=== PATIENT | female | born 2000 | race Caucasian/White ===

== ENCOUNTER 2019-10-13 19:30 | Emergency (ER) | payer SELFPAY ==
[2019-10-13] MEDS ORDERED: LORazepam 0.5 MG Tab PO ONE (19:59)
--- NOTE | 2019-10-13 20:04 | EDM.PDOC ---
ED HPI GENERAL MEDICAL PROBLEM - General Chief Complaint: General Stated Complaint: possible panic attack Time Seen by Provider: 10/13/19 19:35 Source of Information: Reports: Patient History Limitations: Reports: No Limitations (. ) - History of Present Illness INITIAL COMMENTS - FREE TEXT/NARRATIVE: Patient is a 19-year-old female who presents to the ER with complaints of what she feels was likely a panic attack. States that she was on her way back from [place] and became shaky, started hyperventilating, and her heart started racing. She states that she had a feeling of impending doom. She states that the symptoms lasted approximately 20 minutes. The time she arrived to the ER, she states that she feels much better, however she is still quite anxious. She states that she has had what she feels are panic attacks intermittently for quite a while. Over the last couple weeks they have gotten slightly worse, but this is the worst that she has had. She states that she is probably had 2-3 episodes a week for the last few weeks. She has never seen a primary care provider and has never been on medications for anxiety. She has no history of thyroid dysfunction or any other chronic medical conditions. - Related Data Allergies Allergy/AdvReac Type Severity Reaction Status Date / Time No Known Allergies Allergy Verified 10/13/19 19:37 Home Meds: Home Meds hydrOXYzine HCL [Atarax] 50 mg PO QID PRN #15 tab 10/13/19 [Rx] Past Medical History - Past Health History Medical/Surgical History: Denies Medical/Surgical History Social & Family History - Tobacco Use Smoking Status *Q: Never Smoker - Recreational Drug Use Recreational Drug Use: Yes Drug Use in Last 12 Months: Yes Recreational Drug Type: Reports: Marijuana/Hashish Recreational Drug Use Frequency: Weekly ED ROS GENERAL - Review of Systems Review Of Systems: Comprehensive ROS is negative, except as noted in HPI. ED EXAM, GENERAL - Physical Exam Exam: See Below Exam Limited By: No Limitations General Appearance: Alert, WD/WN, Anxious Respiratory/Chest: No Respiratory Distress, Lungs Clear, Normal Breath Sounds, No Accessory Muscle Use, Chest Non-Tender Cardiovascular: Normal Peripheral Pulses, Regular Rate, Rhythm, No Edema, No Gallop, No JVD, No Murmur, No Rub, Tachycardia Neurological: Alert, Oriented, CN II-XII Intact, Normal Cognition, Normal Gait, Normal Reflexes, No Motor/Sensory Deficits Psychiatric: Normal Affect, Anxious, Tearful Skin Exam: Warm, Dry, Intact, Normal Color, No Rash EKG INTERPRETATION EKG Date: 10/13/19 Time: 19:49 Rhythm: NSR Rate (Beats/Min): 133 [place]: Normal P-Wave: Present QRS: Normal ST-T: Normal QT: Prolonged Comparison: NA - No Prior EKG EKG Interpretation Comments: ekg interpretted by Dr. Marek MD. Course - Vital Signs Last Recorded V/S: Last Vital Signs Temp 97.4 F 10/13/19 19:40 Pulse 125 H 10/13/19 19:40 Resp 20 10/13/19 19:40 BP 158/112 H 10/13/19 19:40 Pulse Ox 96 10/13/19 19:40 - Orders/Labs/Meds Orders: Active Orders 24 hr Category Date Time Status EKG Documentation Completion [RC] STAT Care 10/13/19 19:40 Active Labs: Laboratory Tests 10/13/19 10/13/19 Range/Units 19:53 19:53 WBC 12.33 H (3.98-10.04) K/mm3 RBC 4.34 (3.98-5.22) M/mm3 Hgb 13.6 (11.2-15.7) gm/dl Hct 40.9 (34.1-44.9) % MCV 94.2 (79.4-94.8) fl MCH 31.3 (25.6-32.2) pg MCHC 33.3 (32.2-35.5) g/dl RDW Std Deviation 44.8 (36.4-46.3) fL Plt Count 378 H (182-369) K/mm3 MPV 9.6 (9.4-12.3) fl Neut % (Auto) 57.7 (34.0-71.1) % Lymph % (Auto) 30.4 (19.3-51.7) % [place] % (Auto) 6.6 (4.7-12.5) % Eos % (Auto) 4.6 (0.7-5.8) Baso % (Auto) 0.6 (0.1-1.2) % Neut # (Auto) 7.12 H (1.56-6.13) K/mm3 Lymph # (Auto) 3.75 H (1.18-3.74) K/mm3 [place] # (Auto) 0.81 H (0.24-0.36) K/mm3 Eos # (Auto) 0.57 H (0.04-0.36) K/mm3 Baso # (Auto) 0.07 (0.01-0.08) K/mm3 Manual Slide Review Normal smear Sodium 141 (136-145) mEq/L Potassium 3.1 L (3.5-5.1) mEq/L Chloride 104 (98-107) mEq/L Carbon Dioxide 24 (21-32) mEq/L Anion Gap 16.1 H (5-15) BUN 8 (7-18) mg/dL Creatinine 0.9 (0.55-1.02) mg/dL Est Cr Clr Drug Dosing 75.24 mL/min Estimated GFR (MDRD) > 60 (>60) mL/min BUN/Creatinine Ratio 8.9 L (14-18) Glucose 182 H (74-106) mg/dL Calcium 9.0 (8.5-10.1) mg/dL Total Bilirubin 0.5 (0.2-1.0) mg/dL AST 6 L (15-37) U/L ALT 19 (14-59) U/L Alkaline Phosphatase 67 (46-116) U/L Total Protein 7.7 (6.4-8.2) g/dl Albumin 4.2 (3.4-5.0) g/dl Globulin 3.5 gm/dL Albumin/Globulin Ratio 1.2 (1-2) TSH 3rd Generation 2.815 (0.516-4.13) uIU/mL Meds: Medications Discontinued Medications Generic Name Dose Route Start Last Admin Trade Name Freq PRN Reason Stop Dose Admin Lorazepam 0.5 mg 10/13/19 19:59 10/13/19 20:13 Ativan PO 10/13/19 20:00 0.5 mg ONETIME ONE Administration Potassium Chloride 40 meq 10/13/19 20:42 10/13/19 20:55 Klor-Con M20 PO 10/13/19 20:43 40 meq ONETIME ONE Administration - Re-Assessments/Exams Free Text/Narrative Re-Assessment/Exam: Based on patient's description of symptoms and presentation, I feel it is likely that she suffered a panic attack. She is currently tachycardic at 110 to 130. I have ordered a CBC, CMP, TSH, and EKG. I will give her a dose of Ativan 0.5 mg p.o.. 10/13/19 20:49 Hematology was significant for a potassium low at 3.1. We will supplement with 40 mEq of oral KCl at this time. EKG showed sinus tachycardia with slight QT prolongation. Patient is feeling better at this time. I will discharge her home with a prescription for hydroxyzine as needed for anxiety. Recommend that she schedule an appointment with a primary care provider early next week to establish long-term treatment of her anxiety. Discharge instructions as documented. Departure - Departure Time of Disposition: 20:51 Disposition: Home, Self-Care 01 Condition: Good Clinical Impression: Panic attack - Discharge Information *PRESCRIPTION DRUG MONITORING PROGRAM REVIEWED*: No *COPY OF PRESCRIPTION DRUG MONITORING REPORT IN PATIENT GEE: No Prescriptions: hydrOXYzine HCL [Atarax] 50 mg PO QID PRN #15 tab PRN Reason: Anxiety Instructions: Panic Attack, Scyj-to-Gasl, Potassium Content of Foods Referrals: PCP,None [Primary Care Provider] - Forms: ED Department Discharge Additional Instructions: You were seen in the emergency department today after having a panic attack. Work-up was completed included blood work, as well as an EKG of your heart. This was found to be overall normal with the exception of your potassium level being slightly low. While in the ER, you received a dose of Ativan for anxiety as well as potassium. A prescription has been sent to [facility] for hydroxyzine. Use this medication as prescribed for anxiety. Recommend that you call to schedule appointment with a primary care provider on Tuesday for ongoing management of your recurrent anxiety. Also recommend that you increase your intake of potassium rich foods. Return to the ER as needed. Sepsis Event Note - Evaluation Sepsis Screening Result: No Definite Risk - Focused Exam Vital Signs: Vital Signs Temp Pulse Resp BP Pulse Ox 10/13/19 19:40 97.4 F 125 H 20 158/112 H 96 Date Exam was Performed: 10/13/19 Time Exam was Performed: 21:52 - My Orders Last 24 Hours: My Active Orders 10/13/19 19:40 EKG Documentation Completion [RC] STAT - Assessment/Plan Last 24 Hours: My Active Orders 10/13/19 19:40 EKG Documentation Completion [RC] STAT
[2019-10-13] MEDS ORDERED: Potassium Chloride 20 MEQ Tab.ER PO ONE (20:42)
== END 2019-10-13 21:06 | disposition home or self-care (01) ==
LOC: JD.ED 19:30
DX: F41.0 Panic disorder [episodic paroxysmal anxiety] (principal)
CPT/HCPCS: 36415; 80053; 84443; 85025; 93005; 99283; A9270; 93010

== ENCOUNTER 2019-10-15 12:41 | Emergency (ER) | payer SELFPAY ==
[2019-10-15] MEDS ORDERED: LORazepam 1 MG Tab PO ONE (13:31)
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
== END 2019-10-15 14:40 | disposition home or self-care (01) ==
LOC: JD.ED 12:41
DX: F41.0 Panic disorder [episodic paroxysmal anxiety] (principal); F32.9 Major depressive disorder, single episode, unspecified; Z79.899 Other long term (current) drug therapy
CPT/HCPCS: 99283

== ENCOUNTER 2019-10-28 22:54 | Emergency (ER) | payer SELFPAY ==
--- NOTE | 2019-10-28 23:12 | EDM.PDOC ---
ED HPI GENERAL MEDICAL PROBLEM - General Chief Complaint: General Stated Complaint: dizzy nausea shakey Time Seen by Provider: 10/28/19 22:56 Source of Information: Reports: Patient History Limitations: Reports: No Limitations - History of Present Illness INITIAL COMMENTS - FREE TEXT/NARRATIVE: Patient says she was in the bathroom putting in her nose ring when she became lightheaded and felt like she was going to pass out. She went out into the living area of the house where her boyfriend was and she did go ahead and pass out completely was caught by her boyfriend and laid down and she was out for a short while duration not clear but seem to have been no more than a few minutes. She had not been ill leading up to this. No fever no respiratory symptoms no nausea vomiting diarrhea. No readily identified risk factors though the patient does smoke to some extent and takes Ativan on a as needed basis. This is her only medication. She uses it as needed for "panic attacks. " She said she took either 1/2 mg or 1 mg about 2 PM today. Incident happened shortly before presentation and there has been no medication or any other measure to moderate any symptoms though patient is asymptomatic at the time of exam. - Related Data Allergies Allergy/AdvReac Type Severity Reaction Status Date / Time No Known Allergies Allergy Verified 10/28/19 23:10 Home Meds: Home Meds hydrOXYzine HCL [Atarax] 50 mg PO QID PRN #15 tab 10/13/19 [Rx] LORazepam [Ativan] 1 mg PO TID PRN #12 tablet 10/15/19 [Rx] Past Medical History - Past Health History Medical/Surgical History: Denies Medical/Surgical History Social & Family History - Tobacco Use Smoking Status *Q: Light Tobacco Smoker - Caffeine Use Caffeine Use: Reports: None ED ROS GENERAL - Review of Systems Review Of Systems: Comprehensive ROS is negative, except as noted in HPI. ED EXAM, GENERAL - Physical Exam Exam: See Below Exam Limited By: No Limitations General Appearance: Alert, WD/WN, No Apparent Distress Eye Exam: Bilateral Eye: EOMI, PERRL Ears: Normal External Exam Nose: Normal Inspection Throat/Mouth: Normal Inspection Head: Atraumatic, Normocephalic Neck: Normal Inspection, Supple, Non-Tender Cardiovascular: Regular Rate, Rhythm GI/Abdominal: Soft, Non-Tender Back Exam: Normal Inspection Extremities: Normal Inspection, Non-Tender Neurological: Alert, Oriented, Normal Cognition, No Motor/Sensory Deficits Psychiatric: Normal Affect Skin Exam: Warm, Dry Course - Vital Signs Last Recorded V/S: Last Vital Signs Temp 36.3 C 10/28/19 23:06 Pulse 111 H 10/28/19 23:06 Resp 16 10/28/19 23:06 BP 138/99 H 10/28/19 23:06 Pulse Ox 100 10/28/19 23:06 Orthostatic Blood Pressure [ 135/98 Standing] Orthostatic Blood Pressure [ 124/90 Sitting] Orthostatic Blood Pressure [ 122/88 Supine] - Orders/Labs/Meds Orders: Active Orders 24 hr Category Date Time Status EKG Documentation Completion [RC] STAT Care 10/28/19 23:06 Active Orthostatic Vital Signs [RC] ASDIRECTED Care 10/29/19 00:01 Active Chest 1V Frontal [CR] Stat Exams 10/28/19 23:06 Taken Head wo Cont [CT] Stat Exams 10/29/19 00:29 Taken Labs: Laboratory Tests 10/28/19 10/28/19 10/28/19 Range/Units 23:20 23:20 23:56 WBC 11.27 H (3.98-10.04) K/mm3 RBC 4.32 (3.98-5.22) M/mm3 Hgb 13.1 (11.2-15.7) gm/dl Hct 41.2 (34.1-44.9) % MCV 95.4 H (79.4-94.8) fl MCH 30.3 (25.6-32.2) pg MCHC 31.8 L (32.2-35.5) g/dl RDW Std Deviation 45.2 (36.4-46.3) fL Plt Count 361 (182-369) K/mm3 MPV 9.5 (9.4-12.3) fl Neutrophils % (Manual) 48 (40-60) % Band Neutrophils % 0 (0-10) % Lymphocytes % (Manual) 44 H (20-40) % Atypical Lymphs % 0 % Monocytes % (Manual) 5 (2-10) % Eosinophils % (Manual) 2 (0.7-5.8) % Basophils % (Manual) 1 (0.1-1.2) Platelet Estimate Adequate RBC Morph Comment Normal Sodium 140 (136-145) mEq/L Potassium 3.6 (3.5-5.1) mEq/L Chloride 104 (98-107) mEq/L Carbon Dioxide 26 (21-32) mEq/L Anion Gap 13.6 (5-15) BUN 11 (7-18) mg/dL Creatinine 0.8 (0.55-1.02) mg/dL Est Cr Clr Drug Dosing TNP Estimated GFR (MDRD) > 60 (>60) mL/min BUN/Creatinine Ratio 13.8 L (14-18) Glucose 141 H (74-106) mg/dL Calcium 8.8 (8.5-10.1) mg/dL Total Bilirubin 0.4 (0.2-1.0) mg/dL AST 6 L (15-37) U/L ALT 17 (14-59) U/L Alkaline Phosphatase 62 (46-116) U/L Troponin I < 0.017 (0.00-0.056) ng/mL Total Protein 7.1 (6.4-8.2) g/dl Albumin 4.0 (3.4-5.0) g/dl Globulin 3.1 gm/dL Albumin/Globulin Ratio 1.3 (1-2) Urine Color Yellow (Yellow) Urine Appearance Clear (Clear) Urine pH 6.5 (5.0-8.0) Ur Specific [place] 1.025 (1.005-1.030) Urine Protein Negative (Negative) Urine Glucose (UA) Negative (Negative) Urine Ketones Negative (Negative) Urine Occult Blood Negative (Negative) Urine Nitrite Negative (Negative) Urine Bilirubin Negative (Negative) Urine Urobilinogen 0.2 (0.2-1.0) Ur Leukocyte Esterase Negative (Negative) Urine HCG, Qual (NEGATIVE) Urine Opiates Screen (FAPSAG=144) Ur Buprenorphine Scrn (CUTOFF=10) Ur Oxycodone Screen (BTC6QH=714) Urine Methadone Screen (HHLRYE=019) Ur Propoxyphene Screen (RSVZPZ=324) Ur Barbiturates Screen (XXASRM=769) Ur Tricyclics Screen (KAZTCK=988) Ur Phencyclidine Scrn (CUTOFF=25) Ur Amphetamine Screen (EKLQSV=151) U Methamphetamines Scrn (FZXZJA=536) U Benzodiazepines Scrn (TUVDJU=891) U Cocaine Metab Screen (YJKPII=197) U Marijuana (THC) Screen (CUTOFF=50) 10/28/19 10/28/19 Range/Units 23:56 23:56 WBC (3.98-10.04) K/mm3 RBC (3.98-5.22) M/mm3 Hgb (11.2-15.7) gm/dl Hct (34.1-44.9) % MCV (79.4-94.8) fl MCH (25.6-32.2) pg MCHC (32.2-35.5) g/dl RDW Std Deviation (36.4-46.3) fL Plt Count (182-369) K/mm3 MPV (9.4-12.3) fl Neutrophils % (Manual) (40-60) % Band Neutrophils % (0-10) % Lymphocytes % (Manual) (20-40) % Atypical Lymphs % % Monocytes % (Manual) (2-10) % Eosinophils % (Manual) (0.7-5.8) % Basophils % (Manual) (0.1-1.2) Platelet Estimate RBC Morph Comment Sodium (136-145) mEq/L Potassium (3.5-5.1) mEq/L Chloride (98-107) mEq/L Carbon Dioxide (21-32) mEq/L Anion Gap (5-15) BUN (7-18) mg/dL Creatinine (0.55-1.02) mg/dL Est Cr Clr Drug Dosing Estimated GFR (MDRD) (>60) mL/min BUN/Creatinine Ratio (14-18) Glucose (74-106) mg/dL Calcium (8.5-10.1) mg/dL Total Bilirubin (0.2-1.0) mg/dL AST (15-37) U/L ALT (14-59) U/L Alkaline Phosphatase (46-116) U/L Troponin I (0.00-0.056) ng/mL Total Protein (6.4-8.2) g/dl Albumin (3.4-5.0) g/dl Globulin gm/dL Albumin/Globulin Ratio (1-2) Urine Color (Yellow) Urine Appearance (Clear) Urine pH (5.0-8.0) Ur Specific [place] (1.005-1.030) Urine Protein (Negative) Urine Glucose (UA) (Negative) Urine Ketones (Negative) Urine Occult Blood (Negative) Urine Nitrite (Negative) Urine Bilirubin (Negative) Urine Urobilinogen (0.2-1.0) Ur Leukocyte Esterase (Negative) Urine HCG, Qual Negative (NEGATIVE) Urine Opiates Screen Negative (NFFUDT=214) Ur Buprenorphine Scrn Negative (CUTOFF=10) Ur Oxycodone Screen Negative (IBN6RE=471) Urine Methadone Screen Negative (DUDEIN=004) Ur Propoxyphene Screen Negative (EXDBHC=535) Ur Barbiturates Screen Negative (ORWOOJ=182) Ur Tricyclics Screen Negative (LKTTDP=118) Ur Phencyclidine Scrn Negative (CUTOFF=25) Ur Amphetamine Screen Negative (BHRMHN=137) U Methamphetamines Scrn Negative (LLGYDM=707) U Benzodiazepines Scrn Presumptive positive H (UBKQEA=230) U Cocaine Metab Screen Negative (AMAEOX=215) U Marijuana (THC) Screen Presumptive positive H (CUTOFF=50) - Re-Assessments/Exams Free Text/Narrative Re-Assessment/Exam: 10/29/19 01:55 The patient has been fairly exhaustively evaluated without any salient abnormal findings. Mild tachycardia noted on admission resolved. She is not orthostatic. CT of the brain negative. Patient is noted to be positive for benzodiazepines as expected as well as marijuana. Discussed fully with the patient. See instructions below. 10/29/19 01:57 Departure - Departure Time of Disposition: 01:56 Disposition: Home, Self-Care 01 Condition: Good Clinical Impression: Syncope Qualifiers: Syncope type: unspecified Qualified Code(s): R55 - Syncope and collapse - Discharge Information Referrals: PCP,None [Primary Care Provider] - Forms: ED Department Discharge Additional Instructions: You have been seen for an episode of passing out or fainting technically caused syncope. We have done an exhaustive evaluation without any abnormal findings. It is recommended that you report this visit to your primary and be seen within the next couple of days. Return to ER immediately for any further episodes as well as any other signs of illness such as fever. We are giving you some referrals to local providers and if you do not have a regular provider with whom you have a relationship call 1 of the doctors we are referring you to. Sepsis Event Note - Focused Exam Vital Signs: Vital Signs Temp Pulse Resp BP Pulse Ox 10/28/19 23:06 36.3 C 111 H 16 138/99 H 100 Date Exam was Performed: 10/29/19 Time Exam was Performed: 01:55 - My Orders Last 24 Hours: My Active Orders 10/28/19 23:06 EKG Documentation Completion [RC] STAT Chest 1V Frontal [CR] Stat 10/29/19 00:01 Orthostatic Vital Signs [RC] ASDIRECTED 10/29/19 00:29 Head wo Cont [CT] Stat - Assessment/Plan Last 24 Hours: My Active Orders 10/28/19 23:06 EKG Documentation Completion [RC] STAT Chest 1V Frontal [CR] Stat 10/29/19 00:01 Orthostatic Vital Signs [RC] ASDIRECTED 10/29/19 00:29 Head wo Cont [CT] Stat
--- NOTE | 2019-10-29 07:03 | CT ---
Head CT Technique: Multiple axial sections through the brain were obtained. Intravenous contrast was not utilized. Comparison: No prior intracranial imaging is available. Findings: Ventricles along with basal cisterns and sulci over the convexities are within normal limits for the patient's age. No abnormal parenchymal densities are seen. No evidence of intracranial hemorrhage. No midline shift or mass-effect is seen. Bone window settings were reviewed. Visualized mastoid sinuses and visualized paranasal sinuses show nothing acute. No acute calvarial finding is seen. Impression: 1. Nothing acute is identified on noncontrast head CT exam. Diagnostic code #1 This report was dictated in MDT I agree with preliminary report from alan, finalized on 10/29/19, 1:58 AM Central Daylight Time
--- NOTE | 2019-10-29 07:04 | CR ---
Chest: Portable view of the chest was obtained. Comparison: No prior chest imaging is available. Heart size and mediastinum are normal. Lungs are clear with no acute parenchymal change. Bony structures are unremarkable. Impression: 1. Nothing acute is seen on portable chest x-ray. Diagnostic code #1 This report was dictated in MDT
== END 2019-10-29 02:14 | disposition home or self-care (01) ==
LOC: JD.ED 22:54
DX: R55 Syncope and collapse (principal); F17.200 Nicotine dependence, unspecified, uncomplicated; Z79.899 Other long term (current) drug therapy
CPT/HCPCS: 36415; 70450; 70450-26; 71045; 71045-26; 80053; 80306; 81003; 81025; 84484; 85007; 85027; 93005; 93010; 99283; 99284-25

== ENCOUNTER 2020-01-21 15:20 | Emergency (ER) | payer SELFPAY ==
[2020-01-21] MEDS ORDERED: LORazepam 0.5 MG Tab PO ONE (15:41)
--- NOTE | 2020-01-21 15:57 | EDM.PDOCBH ---
<Cristi Dent Eliud - Last Filed: 01/21/20 15:45> ED HPI GENERAL MEDICAL PROBLEM - General Chief Complaint: Behavioral/Psych Stated Complaint: PANIC ATTACK Time Seen by Provider: 01/21/20 15:31 Source of Information: Reports: Patient History Limitations: Reports: No Limitations - History of Present Illness INITIAL COMMENTS - FREE TEXT/NARRATIVE: Candace is a 19 YO female that presents to the ED with anxiety and heart palpitations. She was smoking marijuana at approximately 1400 and shortly after began to feel her heart racing and became dizzy. Associated complaints are tingling in hands, and feeling warm. She denies nausea, vomiting, and chest pain. She has a history of anxiety and states that this incident feels similar to her past panic attacks. She took 1mg of lorazepam at approximately 1430, which had no effect. 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 ) Chest Pain Score (Numeric/FACES): 5 - Related Data Allergies Allergy/AdvReac Type Severity Reaction Status Date / Time No Known Allergies Allergy Verified 01/21/20 15:32 Home Meds: Home Meds LORazepam [Ativan] 1 mg PO TID PRN #6 tab 01/21/20 [Rx] Past Medical History - Past Health History Medical/Surgical History: Denies Medical/Surgical History Psychiatric History: Reports: Anxiety, Panic Attack Social & Family History - Family History Family Medical History: Noncontributory - Tobacco Use Smoking Status *Q: Never Smoker Second Hand Smoke Exposure: No - Caffeine Use Caffeine Use: Reports: Soda, Tea - Recreational Drug Use Recreational Drug Use: Yes Drug Use in Last 12 Months: Yes Recreational Drug Type: Reports: Marijuana/Hashish Recreational Drug Use Frequency: Weekly ED ROS GENERAL - Review of Systems Review Of Systems: See Below Constitutional: Reports: Fever Respiratory: Denies: Shortness of Breath Cardiovascular: Reports: Lightheadedness, Palpitations GI/Abdominal: Denies: Nausea, Vomiting Neurological: Reports: Dizziness, Tingling (Tingling in fingers. ) Psychiatric: Reports: Anxiety (History of anxiety.) ED EXAM, BEHAVIORAL HEALTH - Physical Exam Exam: See Below Exam Limited By: No Limitations General Appearance: Alert, No Apparent Distress Eye Exam: Bilateral Eye: PERRL (Pupils dilated 5mm bilaterally.) Head: Atraumatic, Normocephalic Respiratory/Chest: No Respiratory Distress, Lungs Clear, Normal Breath Sounds, No Accessory Muscle Use Cardiovascular: No Gallop, No Murmur, No Rub, Tachycardia Neurological: Alert, Normal Mood/Affect, Normal Cognition Psychiatric: Alert, Other (Anxious.) Skin Exam: Warm, Dry, Normal color Departure - Departure Disposition: Home, Self-Care 01 Clinical Impression: Panic attack, Marijuana use - Discharge Information Prescriptions: LORazepam [Ativan] 1 mg PO TID PRN #6 tab PRN Reason: Anxiety Instructions: Panic Attack, [id number] Referrals: Manuela Lmea GSA COORDINATOR [Primary Care Provider] - Forms: ED Department Discharge Additional Instructions: You were evaluated in the ER today regarding your panic attacks. Your heart rate was a little bit fast at today's visit, but EKG was taken, and there was no worrisome abnormalities appreciated. Your heart rate was elevated due to the panic attack. You were given 1 mg p.o. Ativan, for further management, this seemed to help relieve your symptoms fairly well. You were given a prescription for a few more tablets of Ativan, I would recommend for the next 24 hours that you take at least 1 mg every 6 hours for further symptomatic relief. I would also highly recommend that you try to refrain from marijuana use, as this seems to be what causes these panic attacks for you. Would be beneficial for you to cease the marijuana use completely to try to stop these episodes from happening. Please return to the ER at any time if symptoms change or worsen. Sepsis Event Note (ED) - Evaluation Sepsis Screening Result: No Definite Risk <Sheela Newman - Last Filed: 01/21/20 16:21> EKG INTERPRETATION EKG Date: 01/21/20 Time: 15:45 Rhythm: Other (sinus tach) Rate (Beats/Min): 148 [place]: Normal P-Wave: Present QRS: Normal ST-T: Normal QT: Normal Comparison: NA - No Prior EKG EKG Interpretation Comments: No obvious ischemia or acute ST changes noted, reviewed by myself and Dr. Lozano. COURSE, BEHAVIORAL HEALTH COMP - Course Vital Signs: Last Vital Signs Temp 99.4 F 01/21/20 15:28 Pulse 169 H 01/21/20 15:28 Resp 22 H 01/21/20 15:28 BP 161/95 H 01/21/20 15:28 Pulse Ox 100 01/21/20 15:28 Orders, Labs, Meds: Active Orders 24 hr Category Date Time Status EKG Documentation Completion [RC] STAT Care 01/21/20 15:41 Ordered Medications Discontinued Medications Generic Name Dose Route Start Last Admin Trade Name Rebecca PRN Reason Stop Dose Admin Lorazepam 1 mg 01/21/20 15:41 01/21/20 15:49 Ativan PO 01/21/20 15:42 1 mg ONETIME ONE Administration Discharge vs Psych Eval/Treatment:: 01/21/20 16:12 I have read and reviewed the student's HPI and examined the patient and agree with MARIAMA Lieberman-student. Have ordered EKG, as the patient is in a sinus tach on telemetry, along with another milligram Ativan. Patient was reassessed after the Ativan had been given, she does state that she is feeling better she denies any past medical history regarding an overactive thyroid or otherwise. Patient notes that she does sometimes get anxious when she smokes marijuana, but states this was worse than normal. EKG demonstrates sinus tach at 150 bpm, but no obvious worrisome abnormalities appreciated by myself or Dr. Lozano. Departure - Departure Time of Disposition: 16:19 Condition: Good - Discharge Information *PRESCRIPTION DRUG MONITORING PROGRAM REVIEWED*: Yes *COPY OF PRESCRIPTION DRUG MONITORING REPORT IN PATIENT GEE: No Sepsis Event Note (ED) - Focused Exam Vital Signs: Vital Signs Temp Pulse Resp BP Pulse Ox 01/21/20 15:28 99.4 F 169 H 22 H 161/95 H 100 - My Orders Last 24 Hours: My Active Orders 01/21/20 15:41 EKG Documentation Completion [RC] STAT - Assessment/Plan Last 24 Hours: My Active Orders 01/21/20 15:41 EKG Documentation Completion [RC] STAT
== END 2020-01-21 16:31 | disposition home or self-care (01) ==
LOC: JD.ED 15:20
DX: F41.0 Panic disorder [episodic paroxysmal anxiety] (principal); F12.90 Cannabis use, unspecified, uncomplicated
CPT/HCPCS: 93005; 99283; A9270; 93010

== ENCOUNTER 2020-06-19 00:31 | Emergency (ER) | payer SELFPAY ==
--- NOTE | 2020-06-19 02:57 | EDM.PDOC ---
ED HPI GENERAL MEDICAL PROBLEM - General Chief Complaint: Respiratory Problem Stated Complaint: SOB/COUGH Time Seen by Provider: 06/19/20 02:43 Source of Information: Reports: Patient History Limitations: Reports: No Limitations - History of Present Illness INITIAL COMMENTS - FREE TEXT/NARRATIVE: Ms. Hinojosa is a very pleasant 19-year-old woman who now presents the ED with 4 to 5 days of a cough occasionally productive of light yellow or clear sputum, dyspnea on exertion, sinus congestion, and nausea with slight vomiting related to her cough. She has not had a fever. She states that she wheezes, especially when she is supine, and that the noise from her wheezing is preventing her from sleeping, therefore she has been sleeping with 4 pillows to prop her up. She states that she has tried Mucinex DM, without any real relief. Here in the ED, the patient's initial BP is found to be mildly elevated at 142/103, with tachycardia of 126 bpm. She is afebrile, saturating 92% on room air. Prior to 4 5 days ago, the patient denies having a recent fever, chills, sore throat, ear pain, nasal or sinus congestion, cough, dyspnea, chest pain, palpitations, nausea, vomiting, constipation, diarrhea, abdominal pain, urinary symptoms, recent weight gain or weight loss, recent bloody bowel movements or black bowel movements, recent joint aches, headaches, or rashes. The patient's PCP is Mathew Winters NP. She has not received an influenza vaccine this season, but agreed to receive one here in the ED. Chest Pain Score (Numeric/FACES): 6 - Related Data Allergies Allergy/AdvReac Type Severity Reaction Status Date / Time No Known Allergies Allergy Verified 06/19/20 00:44 Home Meds: Home Meds Escitalopram Oxalate [Lexapro] 1 tab PO DAILY 06/19/20 [History] Past Medical History Psychiatric History: Reports: Anxiety, Panic Attack Endocrine/Metabolic History: Reports: Obesity/BMI 30+ - Past Surgical History HEENT Surgical History: Reports: Oral Surgery (dental extractions) Social & Family History - Tobacco Use Tobacco Use Status *Q: Never Tobacco User Tobacco Use Within Last Twelve Months: Vaping (Nicotine) - Caffeine Use Caffeine Use: Reports: None - Alcohol Use Alcohol Use History: No - Recreational Drug Use Recreational Drug Use: Yes Drug Use in Last 12 Months: Yes Recreational Drug Type: Reports: Marijuana/Hashish (smokes twice a week) - Living Situation & Occupation Living situation: Reports: Single, with Significant Other (Fianc) Occupation: Unemployed ED ROS GENERAL - Review of Systems Review Of Systems: Comprehensive ROS is negative, except as noted in HPI. ED EXAM, GENERAL - Physical Exam Exam: See Below Exam Limited By: No Limitations General Appearance: Alert, WD/WN, No Apparent Distress Eye Exam: Bilateral Eye: EOMI, Normal Inspection Ears: Normal External Exam, Hearing Grossly Normal Nose: Normal Inspection Throat/Mouth: Normal Inspection, Normal Lips, Normal Voice, No Airway Compromise Head: Atraumatic, Normocephalic Neck: Normal Inspection, Full Range of Motion Respiratory/Chest: No Respiratory Distress, No Accessory Muscle Use, Wheezing (inspiratory and expiratory, increased when patient placed supine). No: Decreased Breath Sounds, Crackles, Rhonchi, Stridor, Prolonged Expiration Cardiovascular: Normal Peripheral Pulses, Regular Rate, Rhythm, No Gallop, No JVD, No Murmur, No Rub Peripheral Pulses: 3+: Radial (L), Radial (R) GI/Abdominal: Normal Bowel Sounds, Soft, Non-Tender, No Organomegaly, No Distention, No Abnormal Bruit, No Mass Back Exam: Normal Inspection, Full Range of Motion, NT Extremities: Normal Inspection, Normal Range of Motion, Normal Capillary Refill Neurological: Alert, Oriented, Normal Cognition, No Motor/Sensory Deficits Psychiatric: Normal Affect Skin Exam: Warm, Dry, Intact, Normal Color, No Rash Course - Vital Signs Last Recorded V/S: Last Vital Signs Temp 36.4 C 06/19/20 00:41 Pulse 126 H 06/19/20 00:41 Resp 20 06/19/20 00:41 BP 142/103 H 06/19/20 00:41 Pulse Ox 92 L 06/19/20 00:41 - Orders/Labs/Meds Orders: Active Orders 24 hr Category Date Time Status Influenza Vaccine Charge [RC] .DISCHARGE Care 06/19/20 02:53 Active Chest 2V [CR] Stat Exams 06/19/20 02:53 Taken Meds: Medications Discontinued Medications Generic Name Dose Route Start Last Admin Trade Name Freq PRN Reason Stop Dose Admin Influenza Virus Vaccine 60 mcg 06/19/20 03:00 Fluzone Quad Syringe IM 06/19/20 03:01 .ONCE ONE - Re-Assessments/Exams Free Text/Narrative Re-Assessment/Exam: 06/19/20 02:54 I have ordered a 2 view chest x-ray to evaluate. Provided it does not demonstrate an infiltrate, I do not see an indication for blood work at this time. 06/19/20 04:11 Two-view chest radiograph appears to be grossly normal. The cardiac silhouette is within normal limits. No pulmonary vascular congestion. No pleural effusions. No focal infiltrate. No pneumothorax. Formal read per the Radiologist pending. 06/19/20 04:16 Chest x-ray results discussed with the patient. She is suffering from acute viral bronchitis. I explained that, unfortunately, no treatments have been shown to improve the symptoms of bronchitis - not antibiotics, inhalers, steroids, anti-inflammatories, or cough medicines. Unfortunately, the patient will simply have to let this illness run its course, which typically takes 3 to 4 weeks. As she is already aware, the coughing and wheezing will tend to keep her awake at night, which will wear her down and make her exhausted. I recommended that she continue to do what she is doing, that is, sleeping in a somewhat upright position, which may decrease the comfort of her sleep, but at least allow her to sleep somewhat. The patient expressed understanding. She will be given an influenza vaccine prior to discharge. Departure - Departure Time of Disposition: 04:19 Disposition: Home, Self-Care 01 Condition: Good Clinical Impression: Acute viral bronchitis - Discharge Information *PRESCRIPTION DRUG MONITORING PROGRAM REVIEWED*: Not Applicable *COPY OF PRESCRIPTION DRUG MONITORING REPORT IN PATIENT GEE: Not Applicable Referrals: Mathew Winters NP [Primary Care Provider] - Forms: ED Department Discharge Additional Instructions: You were seen in the emergency room for 4 to 5 days of a cough sometimes productive of light yellowish or clear sputum, chest tightness, shortness of breath, wheezing, especially when lying down, and some nausea with slight vomiting associated with your cough. Work-up in the ER included a chest x-ray, which returned completely normal. You do not have pneumonia. Based on your history, physical exam, and chest x-ray results, you are suffering from acute viral bronchitis = a viral infection of the tubes leading into your lungs. As discussed, unfortunately, there are no medicines that have been shown to improve the symptoms of viral bronchitis - not antibiotics, inhalers, steroids, anti-inflammatories, or cough medicines. As discussed, we recommend that you sleep in a somewhat upright position, which will help to keep your chest quieter, to help to allow you to sleep. As discussed, acute viral bronchitis typically takes 3 to 4 weeks to resolve. If any other problems, please do not hesitate to return to the ER. You were given an influenza vaccine during your ER visit. Sepsis Event Note (ED) - Evaluation Sepsis Screening Result: No Definite Risk - Focused Exam Vital Signs: Vital Signs Temp Pulse Resp BP Pulse Ox 06/19/20 00:41 36.4 C 126 H 20 142/103 H 92 L - My Orders Last 24 Hours: My Active Orders 06/19/20 02:53 Influenza Vaccine Charge [RC] .DISCHARGE Chest 2V [CR] Stat - Assessment/Plan Last 24 Hours: My Active Orders 06/19/20 02:53 Influenza Vaccine Charge [RC] .DISCHARGE Chest 2V [CR] Stat
[2020-06-19] MEDS ORDERED: FLU VACC QS2020-21(6MOS UP)/PF 60 MCG/0.5 ML SYRINGE IM ONE (03:00)
--- NOTE | 2020-06-19 08:53 | CR ---
Chest: 2 views of the chest were obtained. Comparison: Prior chest x-ray of 10/28/19. Heart size and mediastinum are normal. Lungs are clear with no acute parenchymal change. Bony structures appear within normal limits. Impression: 1. Nothing acute is seen on 2 view chest x-ray. Diagnostic code #1
== END 2020-06-19 04:29 | disposition home or self-care (01) ==
LOC: JD.ED 00:31
DX: J20.8 Acute bronchitis due to other specified organisms (principal); F41.9 Anxiety disorder, unspecified; E66.9 Obesity, unspecified; F17.290 Nicotine dependence, other tobacco product, uncomplicated; Z68.33 Body mass index [BMI] 33.0-33.9, adult; Z79.899 Other long term (current) drug therapy
CPT/HCPCS: 71046; 71046-26; 99284-25